=== PATIENT | female | born 1945 | race African-American/Black ===

== ENCOUNTER 2018-03-17 08:17 | Inpatient (IN) | payer MEDICARE, MEDICAID ==
[2018-03-17] VITALS (29 sets, daily range): BP systolic 88–143; BP diastolic 54–84
[~2018-03-17] VITALS: Ht 162.6 cm; Wt 66.7 kg
[~2018-03-17 08:17] MED LIST: ASPI-1158 PO; ATOR40TA70 PO; BENZ0.5T3 PO; CALC-25 PO; CARB100T4 PO; CLOM50CA2 PO; DOCU-272 PO; LEVO500T2 PO; QUET400T PO; RISP2TAB22 PO
[2018-03-17] MEDS ORDERED: KETAMINE HCL 50 MG/ML 10ML IV ONE (08:30)
[2018-03-17] MEDS ORDERED: EPINEPHRINE 1:1000 1 MG/ML AMP INJ ONE ×2 (08:30→08:45)
[2018-03-17] MEDS ORDERED: METHYLPREDNISOLONE SOD SUCC 125 MG/2 ML VIAL IV ONE (08:30)
[2018-03-17] MEDS ORDERED: FAMOTIDINE 20MG/2ML VIAL IV ONE (08:30)
[2018-03-17] MEDS ORDERED: SODIUM CHLORIDE 0.9% 1,000 ML IV ONE ×3 (08:39→09:25)
[2018-03-17] MEDS ORDERED: HYDRALAZINE 20MG/ML VIAL ONE (08:41)
[2018-03-17] MEDS ORDERED: PROPOFOL 10MG/ML 100ML 100 ML IV ONE (08:45)
[2018-03-17] MEDS ORDERED: MIDAZOLAM HCL 50 MG in DEXTROSE 5% WATER 40 ML IV ONE (08:45)
[2018-03-17] MEDS ORDERED: HYDRALAZINE 20MG/ML VIAL IV ONE (08:45)
[2018-03-17] MEDS ORDERED: SUCCINYLCHOLINE CHLORIDE 200MG/10ML VIAL IV ONE ×2 (08:45→10:34)
[2018-03-17 09:05] LABS: BASOPHILS % 0.4 % (0.0-2.0); EOSINOPHILS % 0.2 % (0.0-5.0); HEMATOCRIT. 36.4 % (36.0-48.0); HEMOGLOBIN. 12.1 g/dL (12.0-16.0); LYMPHOCYTES % 9.2 % (20.0-50.0); MEAN CORPUSCULAR HEMOGLOBIN 31.4 pg (28.0-32.0); MEAN CORPUSCULAR VOLUME 94.2 fL (81.0-99.0); MEAN PLATELET VOLUME 8.6 fl (7.4-10.4); NEUTROPHILS % 82.2 % (40.0-76.0); PLATELET 390 x1000/uL (130-400); RED BLOOD CELL COUNT 3.86 mill/uL (4.2-5.4); RED CELL DISTRIBUTION WIDTH 13.9 % (11.6-14.6)
[2018-03-17 09:11] LABS: CHLORIDE 98 mEq/L (98-107)
[2018-03-17 09:13] LABS: PROTHROMBIN TIME 10.7 sec (9.4-11.6)
[2018-03-17 09:30] LABS: BG BASE EXCESS -4.4 mmol/L (-2.0-2.0); BG CARBOXYHEMOGLOBIN 0.3 % (0.5-1.5); BG DEOXYHEMOGLOBIN 0.4 % (0.0-5.0); BG FRACTION INSPIRED OXYGEN 100; BG HCO3 ACT 21.1 mmol/L (22.0-26.0); BG METHEMOGLOBIN 0.3 % (0.0-1.5); BG OXYGEN SATURATION 99.6 % (92.0-98.5); BG PCO2 40.3 mmHg (35.0-45.0); BG PH 7.336 (7.350-7.450); BG SAMPLE SITE RIGHT BRACHIAL; BG TIDAL VOLUME(mL) 450 mL; BG TOTAL HEMOGLOBIN 12.4 g/dL (12.0-18.0); BG VENT MODE VENT - A/C; BG VENT RATE 14 set
[2018-03-17 09:30] LABS: CLARITY URINE TURBID (CLEAR); COLOR URINE DARK YELLOW (YELLOW); KETONES URINE 1+ (NEGATIVE); LEUKOCYTE ESTERASE URINE 3+ (NEGATIVE); NITRITE URINE POSITIVE (NEGATIVE); OCCULT BLOOD URINE 1+ (NEGATIVE); PH URINE 5.5 (4.5-8.0); PROTEIN URINE 1+ (NEGATIVE); SPECIFIC GRAVITY URINE 1.019 (1.005-1.030)
[2018-03-17] MEDS ORDERED: INSULIN REGULAR (HUMULIN R) 300UNITS/3ML IV ONE (09:30)
[2018-03-17] MEDS ORDERED: DEXTROSE 50% WATER 50ML SYRINGE IV ONE (09:30)
[2018-03-17] MEDS ORDERED: SODIUM BICARBONATE 8.4% 1 MEQ/ML 50ML SYR IV STA (09:32)
[2018-03-17] MEDS ORDERED: LEVOFLOXACIN 500MG PREMIX 100 ML IV ONE (09:45)
[2018-03-17] MEDS ORDERED: ETOMIDATE 2MG/ML 10ML VIAL IV ONE (10:34)
[2018-03-17 11:12] LABS: CHLORIDE 106 mEq/L (98-107)
[2018-03-17] MEDS ORDERED: NOREPINEPHRINE 4 MG in DEXT 5% WATER 246 ML IV PRN (13:15)
[2018-03-17] MEDS ORDERED: IPRATROPIUM/ALBUTEROL 0.5-3(2.5)MG/3ML NEB HHN PRN (13:15)
[2018-03-17] MEDS ORDERED: LEVOFLOXACIN 500MG PREMIX 100 ML IV SCH (13:15)
[2018-03-17] MEDS: ENOXAPARIN 40MG/0.4ML SYR SUBCUT SCH (13:44)
[2018-03-17] MEDS: DIPHENHYDRAMINE 50MG/ML VIAL IV SCH ×2 (13:44→18:49)
[2018-03-17] MEDS: DEXT 5%/0.45% NACL 1000ML 1,000 ML IV SCH (13:51)
[2018-03-17] MEDS: METHYLPREDNISOLONE SOD SUCC 40 MG/ML VIAL IV SCH ×2 (14:45→21:16)
[2018-03-17] MEDS: IPRATROPIUM/ALBUTEROL 0.5-3(2.5)MG/3ML NEB HHN SCH ×2 (15:37→20:28)
[2018-03-17] MEDS: PROPOFOL 10MG/ML 100ML 100 ML IV PRN (20:35)
[2018-03-17] MEDS ORDERED: FAMOTIDINE 20MG/2ML VIAL IV SCH (21:00)
[2018-03-18] VITALS (50 sets, daily range): BP systolic 92–156; BP diastolic 41–97
[2018-03-18] MEDS: IPRATROPIUM/ALBUTEROL 0.5-3(2.5)MG/3ML NEB HHN SCH ×6 (00:08→20:24)
[2018-03-18] MEDS: DIPHENHYDRAMINE 50MG/ML VIAL IV SCH ×5 (00:49→23:17)
[2018-03-18] MEDS: DEXT 5%/0.45% NACL 1000ML 1,000 ML IV SCH ×2 (00:52→20:06)
[2018-03-18] MEDS: METHYLPREDNISOLONE SOD SUCC 40 MG/ML VIAL IV SCH ×2 (06:04→17:29)
[2018-03-18] MEDS: PROPOFOL 10MG/ML 100ML 100 ML IV PRN (06:05)
[2018-03-18 06:08] LABS: HEMATOCRIT. 31.4 % (36.0-48.0); HEMOGLOBIN. 10.6 g/dL (12.0-16.0); MEAN CORPUSCULAR HEMOGLOBIN 31.3 pg (28.0-32.0); MEAN PLATELET VOLUME 8.5 fl (7.4-10.4); PLATELET 373 x1000/uL (130-400); RED BLOOD CELL COUNT 3.38 mill/uL (4.2-5.4)
[2018-03-18 06:21] LABS: CHLORIDE 104 mEq/L (98-107)
[2018-03-18] MEDS ORDERED: POTASSIUM CHLORIDE 20MEQ/PACKET PO SCH (07:45)
[2018-03-18 08:50] LABS: BG BASE EXCESS -0.1 mmol/L (-2.0-2.0); BG CARBOXYHEMOGLOBIN 0.3 % (0.5-1.5); BG DEOXYHEMOGLOBIN 2.5 % (0.0-5.0); BG FRACTION INSPIRED OXYGEN 40; BG HCO3 ACT 23.2 mmol/L (22.0-26.0); BG METHEMOGLOBIN 0.3 % (0.0-1.5); BG OXYGEN SATURATION 97.5 % (92.0-98.5); BG OXYHEMOGLOBIN 96.9 % (94.0-97.0); BG PH 7.464 (7.350-7.450); BG PO2 95.9 mmHg (75.0-100.0); BG SAMPLE SITE RIGHT RADIAL; BG TIDAL VOLUME(mL) 450 mL; BG TOTAL HEMOGLOBIN 11.6 g/dL (12.0-18.0); BG VENT MODE VENT - A/C; BG VENT RATE 14 set
[2018-03-18] MEDS: ENOXAPARIN 40MG/0.4ML SYR SUBCUT SCH (09:31)
[2018-03-18] MEDS: FAMOTIDINE 20MG/2ML VIAL IV SCH (09:32)
[2018-03-18 11:20] LABS: PLATELET ESTIMATE NORMAL
[2018-03-18] MEDS: LEVOFLOXACIN 250MG PREMIX 50 ML IV SCH (11:41)
[2018-03-18] MEDS ORDERED: PROPOFOL 10MG/ML 100ML 100 ML IV SCH (13:00)
[2018-03-19] VITALS (44 sets, daily range): BP systolic 93–158; BP diastolic 47–98
[2018-03-19] MEDS: IPRATROPIUM/ALBUTEROL 0.5-3(2.5)MG/3ML NEB HHN SCH ×6 (00:24→20:00)
[2018-03-19] MEDS: DIPHENHYDRAMINE 50MG/ML VIAL IV SCH ×4 (06:24→23:36)
[2018-03-19 06:30] LABS: HEMATOCRIT. 28.9 % (36.0-48.0); HEMOGLOBIN. 9.6 g/dL (12.0-16.0); MEAN CORPUSCULAR HEMOGLOBIN 31.4 pg (28.0-32.0); MEAN CORPUSCULAR VOLUME 94.5 fL (81.0-99.0); MEAN PLATELET VOLUME 8.6 fl (7.4-10.4); PLATELET 350 x1000/uL (130-400); RED BLOOD CELL COUNT 3.06 mill/uL (4.2-5.4); RED CELL DISTRIBUTION WIDTH 14.5 % (11.6-14.6)
[2018-03-19 06:43] LABS: CHLORIDE 105 mEq/L (98-107)
[2018-03-19 06:51] LABS: PHOSPHORUS 2.5 mg/dL (2.5-4.9)
[2018-03-19] MEDS ORDERED: POTASSIUM CHLORIDE 20MEQ/PACKET PO NR (08:00)
[2018-03-19] MEDS: METHYLPREDNISOLONE SOD SUCC 40 MG/ML VIAL IV SCH ×2 (08:37→17:50)
[2018-03-19] MEDS: ENOXAPARIN 40MG/0.4ML SYR SUBCUT SCH (08:38)
[2018-03-19] MEDS: FAMOTIDINE 20MG/2ML VIAL IV SCH (08:38)
[2018-03-19] MEDS ORDERED: PROPOFOL 10MG/ML 100ML 100 ML IV SCH (09:16)
[2018-03-19] MEDS: LEVOFLOXACIN 250MG PREMIX 50 ML IV SCH (11:39)
[2018-03-19 11:40] LABS: PLATELET ESTIMATE NORMAL
[2018-03-19] MEDS ORDERED: GENTAMICIN 100MG PREMIX 100 ML IV NR (17:00)
[2018-03-19] MEDS: GENTAMICIN 100MG PREMIX 50 ML IV SCH (17:50)
[2018-03-20] VITALS (36 sets, daily range): BP systolic 104–167; BP diastolic 47–115
[2018-03-20] MEDS: IPRATROPIUM/ALBUTEROL 0.5-3(2.5)MG/3ML NEB HHN SCH ×6 (00:17→19:58)
[2018-03-20 05:43] LABS: HEMATOCRIT. 30.6 % (36.0-48.0); HEMOGLOBIN. 10.2 g/dL (12.0-16.0); MEAN CORPUSCULAR HEMOGLOBIN 31.3 pg (28.0-32.0); MEAN CORPUSCULAR VOLUME 94.5 fL (81.0-99.0); MEAN PLATELET VOLUME 8.6 fl (7.4-10.4); PLATELET 354 x1000/uL (130-400); RED BLOOD CELL COUNT 3.24 mill/uL (4.2-5.4); RED CELL DISTRIBUTION WIDTH 14.3 % (11.6-14.6)
[2018-03-20] MEDS: DIPHENHYDRAMINE 50MG/ML VIAL IV SCH ×4 (05:45→23:16)
[2018-03-20 06:09] LABS: CHLORIDE 104 mEq/L (98-107)
[2018-03-20 06:15] LABS: PHOSPHORUS 1.8 mg/dL (2.5-4.9)
[2018-03-20 08:29] LABS: BG BASE EXCESS 4.8 mmol/L (-2.0-2.0); BG CARBOXYHEMOGLOBIN 0.3 % (0.5-1.5); BG DEOXYHEMOGLOBIN 2.7 % (0.0-5.0); BG FRACTION INSPIRED OXYGEN 30; BG HCO3 ACT 28.2 mmol/L (22.0-26.0); BG METHEMOGLOBIN 0.3 % (0.0-1.5); BG OXYGEN SATURATION 97.3 % (92.0-98.5); BG OXYHEMOGLOBIN 96.7 % (94.0-97.0); BG PCO2 37.2 mmHg (35.0-45.0); BG PH 7.497 (7.350-7.450); BG PO2 89.2 mmHg (75.0-100.0); BG PRESSURE SUPPORT 10; BG SAMPLE SITE RIGHT BRACHIAL; BG TIDAL VOLUME(mL) 450 mL; BG TOTAL HEMOGLOBIN 10.7 g/dL (12.0-18.0); BG VENT MODE VENT - SIMV; BG VENT RATE 8 set
[2018-03-20] MEDS: FAMOTIDINE 20MG/2ML VIAL IV SCH (09:59)
[2018-03-20] MEDS: METHYLPREDNISOLONE SOD SUCC 40 MG/ML VIAL IV SCH (10:00)
[2018-03-20] MEDS: ENOXAPARIN 40MG/0.4ML SYR SUBCUT SCH (10:00)
[2018-03-20 10:12] LABS: PLATELET ESTIMATE NORMAL
[2018-03-20] MEDS ORDERED: POTASSIUM PHOS,M-BASIC-D-BASIC 15 MMOL in SODIUM CHLORIDE 0.9% 245 ML IV NR (10:30)
[2018-03-20] MEDS ORDERED: LEVOFLOXACIN 750MG PREMIX 150 ML IV SCH (11:00)
[2018-03-20 11:01] LABS: BG BASE EXCESS 3.9 mmol/L (-2.0-2.0); BG CARBOXYHEMOGLOBIN 0.3 % (0.5-1.5); BG DEOXYHEMOGLOBIN 3.3 % (0.0-5.0); BG FRACTION INSPIRED OXYGEN 30; BG HCO3 ACT 27.8 mmol/L (22.0-26.0); BG METHEMOGLOBIN 0.2 % (0.0-1.5); BG OXYGEN SATURATION 96.7 % (92.0-98.5); BG OXYHEMOGLOBIN 96.2 % (94.0-97.0); BG PCO2 39.3 mmHg (35.0-45.0); BG PH 7.468 (7.350-7.450); BG PO2 84.2 mmHg (75.0-100.0); BG PRESSURE SUPPORT 8; BG SAMPLE SITE RIGHT BRACHIAL; BG TOTAL HEMOGLOBIN 11.4 g/dL (12.0-18.0); BG VENT MODE VENT - CPAP
[2018-03-20] MEDS ORDERED: GENTAMICIN 100MG PREMIX 100 ML IV SCH (17:00)
[2018-03-20] MEDS: ACETAMINOPHEN 325MG TABLET PO PRN (17:10)
[2018-03-20] MEDS: METHYLPREDNISOLONE SOD SUCC 125 MG/2 ML VIAL IV SCH ×2 (17:23→23:24)
[2018-03-20] MEDS: GENTAMICIN 100MG PREMIX 50 ML IV SCH (17:24)
[2018-03-20] MEDS: LACTULOSE 20G/30ML UDC PO PRN (18:46)
[2018-03-20] MEDS: LORAZEPAM 2MG/ML CPJ IV PRN (23:17)
[2018-03-21] VITALS (46 sets, daily range): BP systolic 99–158; BP diastolic 54–115
[2018-03-21] MEDS: IPRATROPIUM/ALBUTEROL 0.5-3(2.5)MG/3ML NEB HHN SCH ×6 (00:15→23:55)
[2018-03-21] MEDS: DIPHENHYDRAMINE 50MG/ML VIAL IV SCH ×4 (05:23→23:39)
[2018-03-21] MEDS: METHYLPREDNISOLONE SOD SUCC 125 MG/2 ML VIAL IV SCH ×4 (05:23→23:38)
[2018-03-21 05:52] LABS: HEMATOCRIT. 32.1 % (36.0-48.0); HEMOGLOBIN. 10.8 g/dL (12.0-16.0); MEAN CORPUSCULAR HEMOGLOBIN 31.9 pg (28.0-32.0); MEAN CORPUSCULAR VOLUME 95.1 fL (81.0-99.0); MEAN PLATELET VOLUME 9.9 fl (7.4-10.4); PLATELET 320 x1000/uL (130-400); RED BLOOD CELL COUNT 3.38 mill/uL (4.2-5.4); RED CELL DISTRIBUTION WIDTH 14.4 % (11.6-14.6)
[2018-03-21 06:04] LABS: CHLORIDE 100 mEq/L (98-107)
[2018-03-21 06:19] LABS: PHOSPHORUS 3.5 mg/dL (2.5-4.9)
[2018-03-21 06:59] LABS: PLATELET ESTIMATE NORMAL
[2018-03-21] MEDS: FAMOTIDINE 20MG/2ML VIAL IV SCH (10:28)
[2018-03-21] MEDS: ENOXAPARIN 40MG/0.4ML SYR SUBCUT SCH (10:29)
[2018-03-21] MEDS: GENTAMICIN 100MG PREMIX 50 ML IV SCH (17:27)
[2018-03-22] VITALS (52 sets, daily range): BP systolic 83–202; BP diastolic 19–125
[2018-03-22] MEDS: LORAZEPAM 2MG/ML CPJ IV PRN ×2 (02:05→22:41)
[2018-03-22] MEDS: IPRATROPIUM/ALBUTEROL 0.5-3(2.5)MG/3ML NEB HHN SCH ×5 (03:24→21:41)
[2018-03-22] MEDS: METHYLPREDNISOLONE SOD SUCC 125 MG/2 ML VIAL IV SCH ×4 (04:47→23:48)
[2018-03-22] MEDS: DIPHENHYDRAMINE 50MG/ML VIAL IV SCH ×4 (04:48→23:48)
[2018-03-22 06:40] LABS: HEMATOCRIT. 32.2 % (36.0-48.0); HEMOGLOBIN. 10.7 g/dL (12.0-16.0); MEAN CORPUSCULAR HEMOGLOBIN 31.2 pg (28.0-32.0); MEAN CORPUSCULAR VOLUME 94.4 fL (81.0-99.0); MEAN PLATELET VOLUME 9.1 fl (7.4-10.4); PLATELET 328 x1000/uL (130-400); RED BLOOD CELL COUNT 3.41 mill/uL (4.2-5.4); RED CELL DISTRIBUTION WIDTH 13.9 % (11.6-14.6)
[2018-03-22 07:39] LABS: CHLORIDE 98 mEq/L (98-107)
[2018-03-22] MEDS: FAMOTIDINE 20MG/2ML VIAL IV SCH (08:58)
[2018-03-22] MEDS: ENOXAPARIN 40MG/0.4ML SYR SUBCUT SCH (08:59)
[2018-03-22 09:01] LABS: BG BASE EXCESS 5.5 mmol/L (-2.0-2.0); BG CARBOXYHEMOGLOBIN 0.3 % (0.5-1.5); BG DEOXYHEMOGLOBIN 2.5 % (0.0-5.0); BG FRACTION INSPIRED OXYGEN 30; BG HCO3 ACT 29.5 mmol/L (22.0-26.0); BG METHEMOGLOBIN 0.1 % (0.0-1.5); BG OXYGEN SATURATION 97.5 % (92.0-98.5); BG OXYHEMOGLOBIN 97.1 % (94.0-97.0); BG PCO2 40.6 mmHg (35.0-45.0); BG PH 7.479 (7.350-7.450); BG PO2 99.2 mmHg (75.0-100.0); BG PRESSURE SUPPORT 10; BG SAMPLE SITE RIGHT BRACHIAL; BG TIDAL VOLUME(mL) 450 mL; BG TOTAL HEMOGLOBIN 11.1 g/dL (12.0-18.0); BG VENT MODE VENT - SIMV; BG VENT RATE 8 set
[2018-03-22 09:49] LABS: PLATELET ESTIMATE NORMAL
[2018-03-22 10:28] LABS: BG CARBOXYHEMOGLOBIN 0.6 % (0.5-1.5); BG DEOXYHEMOGLOBIN 4.1 % (0.0-5.0); BG FRACTION INSPIRED OXYGEN 30; BG HCO3 ACT 31.2 mmol/L (22.0-26.0); BG METHEMOGLOBIN 0.9 % (0.0-1.5); BG OXYGEN SATURATION 95.8 % (92.0-98.5); BG OXYHEMOGLOBIN 94.4 % (94.0-97.0); BG PCO2 42.5 mmHg (35.0-45.0); BG PH 7.483 (7.350-7.450); BG PRESSURE SUPPORT 8; BG SAMPLE SITE RIGHT BRACHIAL; BG TOTAL HEMOGLOBIN 12.2 g/dL (12.0-18.0); BG VENT MODE VENT - CPAP
[2018-03-22] MEDS ORDERED: RACEPINEPHRINE 2.25% 0.5ML NEB VIAL HHN PRN (11:15)
[2018-03-22 14:56] LABS: BG BASE EXCESS 6.5 mmol/L (-2.0-2.0); BG CARBOXYHEMOGLOBIN 0.4 % (0.5-1.5); BG DEOXYHEMOGLOBIN 3.1 % (0.0-5.0); BG FRACTION INSPIRED OXYGEN 40; BG HCO3 ACT 30.8 mmol/L (22.0-26.0); BG METHEMOGLOBIN 0.2 % (0.0-1.5); BG OXYGEN SATURATION 96.9 % (92.0-98.5); BG OXYHEMOGLOBIN 96.3 % (94.0-97.0); BG PCO2 43.1 mmHg (35.0-45.0); BG PH 7.472 (7.350-7.450); BG PO2 87.4 mmHg (75.0-100.0); BG SAMPLE SITE LEFT RADIAL; BG TOTAL HEMOGLOBIN 11.8 g/dL (12.0-18.0); BG VENT MODE MASK - AEROSOL
[2018-03-22] MEDS: GENTAMICIN 100MG PREMIX 50 ML IV SCH (17:15)
[2018-03-22] MEDS: MONTELUKAST SODIUM 10MG TABLET PO SCH (17:24)
[2018-03-23] VITALS (62 sets, daily range): BP systolic 105–188; BP diastolic 49–99
[2018-03-23] MEDS: IPRATROPIUM/ALBUTEROL 0.5-3(2.5)MG/3ML NEB HHN SCH ×6 (01:21→20:38)
[2018-03-23] MEDS: GENTAMICIN 100MG PREMIX 50 ML IV SCH ×2 (01:24→13:01)
[2018-03-23] MEDS: METHYLPREDNISOLONE SOD SUCC 125 MG/2 ML VIAL IV SCH ×3 (05:34→17:42)
[2018-03-23] MEDS: DIPHENHYDRAMINE 50MG/ML VIAL IV SCH ×3 (05:34→17:42)
[2018-03-23 06:33] LABS: HEMATOCRIT. 31.5 % (36.0-48.0); HEMOGLOBIN. 10.5 g/dL (12.0-16.0); MEAN CORPUSCULAR HEMOGLOBIN 31.5 pg (28.0-32.0); MEAN CORPUSCULAR VOLUME 94.1 fL (81.0-99.0); MEAN PLATELET VOLUME 8.9 fl (7.4-10.4); PLATELET 300 x1000/uL (130-400); RED BLOOD CELL COUNT 3.35 mill/uL (4.2-5.4); RED CELL DISTRIBUTION WIDTH 14.1 % (11.6-14.6)
[2018-03-23 06:46] LABS: CHLORIDE 97 mEq/L (98-107)
[2018-03-23 06:50] LABS: PHOSPHORUS 2.6 mg/dL (2.5-4.9)
[2018-03-23] MEDS: FAMOTIDINE 20MG/2ML VIAL IV SCH (08:29)
[2018-03-23] MEDS: ENOXAPARIN 40MG/0.4ML SYR SUBCUT SCH (08:30)
[2018-03-23 08:40] LABS: PLATELET ESTIMATE NORMAL
[2018-03-23 08:59] LABS: BG BASE EXCESS 8.4 mmol/L (-2.0-2.0); BG CARBOXYHEMOGLOBIN 0.4 % (0.5-1.5); BG FRACTION INSPIRED OXYGEN 30; BG HCO3 ACT 32.8 mmol/L (22.0-26.0); BG METHEMOGLOBIN 0.4 % (0.0-1.5); BG OXYHEMOGLOBIN 96.2 % (94.0-97.0); BG PCO2 44.4 mmHg (35.0-45.0); BG PH 7.486 (7.350-7.450); BG SAMPLE SITE RIGHT RADIAL; BG TOTAL HEMOGLOBIN 11.2 g/dL (12.0-18.0); BG VENT MODE NASAL CANNULA
[2018-03-23] MEDS: LORAZEPAM 2MG/ML CPJ IV PRN (09:55)
[2018-03-23] MEDS ORDERED: DEXTROSE 50% WATER 50ML SYRINGE IV PRN ×2 (13:45→17:45)
[2018-03-23] MEDS ORDERED: ENALAPRIL 2.5MG/2ML VIAL 2ML IV PRN (15:45)
[2018-03-23] MEDS: HYDRALAZINE 20MG/ML VIAL IV PRN ×2 (16:29→22:23)
[2018-03-23] MEDS: MONTELUKAST SODIUM 10MG TABLET PO SCH (16:29)
[2018-03-23] MEDS: BLOOD SUGAR DIAGNOSTIC STRIP TEST SCH ×4 (17:30→20:42)
[2018-03-23] MEDS: LACTULOSE 20G/30ML UDC PO PRN (17:41)
[2018-03-23] MEDS: INSULIN LISPRO 100 UNITS/ML SUBCUT SCH ×2 (17:42→20:42)
[2018-03-24] VITALS (12 sets, daily range): BP systolic 140–170; BP diastolic 58–83
[2018-03-24] MEDS: IPRATROPIUM/ALBUTEROL 0.5-3(2.5)MG/3ML NEB HHN SCH ×6 (00:31→21:25)
[2018-03-24] MEDS: DIPHENHYDRAMINE 50MG/ML VIAL IV SCH ×5 (00:58→22:56)
[2018-03-24] MEDS: METHYLPREDNISOLONE SOD SUCC 125 MG/2 ML VIAL IV SCH ×4 (00:58→17:05)
[2018-03-24] MEDS: GENTAMICIN 100MG PREMIX 50 ML IV SCH ×2 (01:00→12:12)
[2018-03-24] MEDS: BLOOD SUGAR DIAGNOSTIC STRIP TEST SCH ×6 (06:04→21:05)
[2018-03-24] MEDS: HYDRALAZINE 20MG/ML VIAL IV PRN (06:15)
[2018-03-24 06:28] LABS: HEMATOCRIT. 33.8 % (36.0-48.0); HEMOGLOBIN. 11.1 g/dL (12.0-16.0); MEAN CORPUSCULAR HEMOGLOBIN 31.3 pg (28.0-32.0); MEAN CORPUSCULAR VOLUME 94.8 fL (81.0-99.0); PLATELET 330 x1000/uL (130-400); RED BLOOD CELL COUNT 3.57 mill/uL (4.2-5.4); RED CELL DISTRIBUTION WIDTH 13.7 % (11.6-14.6)
[2018-03-24 07:31] LABS: CHLORIDE 101 mEq/L (98-107)
[2018-03-24 07:38] LABS: GENTAMICIN RANDOM 2.4 ug/mL
[2018-03-24] MEDS: INSULIN LISPRO 100 UNITS/ML SUBCUT SCH ×4 (08:05→21:00)
[2018-03-24] MEDS: ENOXAPARIN 40MG/0.4ML SYR SUBCUT SCH (08:49)
[2018-03-24] MEDS: FAMOTIDINE 20MG/2ML VIAL IV SCH (08:50)
[2018-03-24 12:56] LABS: PLATELET ESTIMATE NORMAL
[2018-03-24] MEDS: HYDRALAZINE HCL 25MG TABLET NG SCH ×2 (13:28→21:13)
[2018-03-24] MEDS: MONTELUKAST SODIUM 10MG TABLET PO SCH (17:06)
[2018-03-25] VITALS (12 sets, daily range): BP systolic 145–164; BP diastolic 63–90
[2018-03-25] MEDS: METHYLPREDNISOLONE SOD SUCC 125 MG/2 ML VIAL IV SCH ×2 (00:27→05:11)
[2018-03-25] MEDS: GENTAMICIN 100MG PREMIX 50 ML IV SCH ×2 (00:28→12:57)
[2018-03-25] MEDS: IPRATROPIUM/ALBUTEROL 0.5-3(2.5)MG/3ML NEB HHN SCH ×6 (00:51→20:28)
[2018-03-25] MEDS: HYDRALAZINE HCL 25MG TABLET NG SCH ×3 (05:12→21:11)
[2018-03-25] MEDS: LACTULOSE 20G/30ML UDC PO PRN (05:13)
[2018-03-25] MEDS: DIPHENHYDRAMINE 50MG/ML VIAL IV SCH ×4 (05:13→23:04)
[2018-03-25] MEDS: BLOOD SUGAR DIAGNOSTIC STRIP TEST SCH ×4 (06:24→21:10)
[2018-03-25] MEDS: INSULIN LISPRO 100 UNITS/ML SUBCUT SCH ×4 (06:27→21:00)
[2018-03-25 06:55] LABS: HEMATOCRIT. 34.5 % (36.0-48.0); MEAN CORPUSCULAR HEMOGLOBIN 30.5 pg (28.0-32.0); MEAN CORPUSCULAR VOLUME 95.7 fL (81.0-99.0); MEAN PLATELET VOLUME 9.1 fl (7.4-10.4); PLATELET 311 x1000/uL (130-400); RED CELL DISTRIBUTION WIDTH 14.1 % (11.6-14.6)
[2018-03-25 07:25] LABS: CHLORIDE 104 mEq/L (98-107)
[2018-03-25] MEDS: ENOXAPARIN 40MG/0.4ML SYR SUBCUT SCH (08:15)
[2018-03-25] MEDS: FAMOTIDINE 20MG/2ML VIAL IV SCH (08:15)
[2018-03-25 09:32] LABS: PLATELET ESTIMATE NORMAL
[2018-03-25] MEDS: HYDRALAZINE 20MG/ML VIAL IV PRN (15:54)
[2018-03-25] MEDS: METHYLPREDNISOLONE SOD SUCC 40 MG/ML VIAL IV SCH (17:02)
[2018-03-25] MEDS: MONTELUKAST SODIUM 10MG TABLET PO SCH (17:03)
[2018-03-26] VITALS (14 sets, daily range): BP systolic 121–164; BP diastolic 60–83
[2018-03-26] MEDS: IPRATROPIUM/ALBUTEROL 0.5-3(2.5)MG/3ML NEB HHN SCH ×6 (00:56→20:55)
[2018-03-26] MEDS: GENTAMICIN 100MG PREMIX 50 ML IV SCH ×2 (01:35→13:05)
[2018-03-26] MEDS: METHYLPREDNISOLONE SOD SUCC 40 MG/ML VIAL IV SCH ×2 (01:35→09:53)
[2018-03-26] MEDS: LACTULOSE 20G/30ML UDC PO PRN (05:53)
[2018-03-26] MEDS: DIPHENHYDRAMINE 50MG/ML VIAL IV SCH ×4 (05:53→23:48)
[2018-03-26] MEDS: HYDRALAZINE HCL 25MG TABLET NG SCH ×3 (05:54→22:05)
[2018-03-26] MEDS: BLOOD SUGAR DIAGNOSTIC STRIP TEST SCH ×4 (06:28→21:00)
[2018-03-26 06:38] LABS: HEMATOCRIT. 32.5 % (36.0-48.0); HEMOGLOBIN. 10.6 g/dL (12.0-16.0); MEAN CORPUSCULAR HEMOGLOBIN 31.3 pg (28.0-32.0); MEAN CORPUSCULAR VOLUME 95.9 fL (81.0-99.0); MEAN PLATELET VOLUME 9.3 fl (7.4-10.4); PLATELET 262 x1000/uL (130-400); RED BLOOD CELL COUNT 3.39 mill/uL (4.2-5.4); RED CELL DISTRIBUTION WIDTH 14.2 % (11.6-14.6)
[2018-03-26 06:55] LABS: CHLORIDE 105 mEq/L (98-107)
[2018-03-26] MEDS: FAMOTIDINE 20MG/2ML VIAL IV SCH (08:00)
[2018-03-26] MEDS: ENOXAPARIN 40MG/0.4ML SYR SUBCUT SCH (08:01)
[2018-03-26] MEDS: INSULIN LISPRO 100 UNITS/ML SUBCUT SCH ×4 (08:02→21:00)
[2018-03-26] MEDS: ACETAMINOPHEN 325MG TABLET PO PRN (15:51)
[2018-03-26 17:17] LABS: PLATELET ESTIMATE NORMAL
[2018-03-26] MEDS: MONTELUKAST SODIUM 10MG TABLET PO SCH (18:06)
[2018-03-26] MEDS: PREDNISONE 20MG TABLET PO SCH (18:07)
[2018-03-27] VITALS (12 sets, daily range): BP systolic 110–144; BP diastolic 58–93
[2018-03-27] MEDS: IPRATROPIUM/ALBUTEROL 0.5-3(2.5)MG/3ML NEB HHN SCH ×6 (00:54→20:34)
[2018-03-27] MEDS: DIPHENHYDRAMINE 50MG/ML VIAL IV SCH ×4 (06:07→23:06)
[2018-03-27] MEDS: HYDRALAZINE HCL 25MG TABLET NG SCH ×3 (06:08→21:14)
[2018-03-27] MEDS: BLOOD SUGAR DIAGNOSTIC STRIP TEST SCH ×4 (06:23→21:14)
[2018-03-27] MEDS: INSULIN LISPRO 100 UNITS/ML SUBCUT SCH ×4 (06:24→21:00)
[2018-03-27] MEDS: FAMOTIDINE 20MG/2ML VIAL IV SCH (09:19)
[2018-03-27] MEDS: ENOXAPARIN 40MG/0.4ML SYR SUBCUT SCH (09:20)
[2018-03-27] MEDS: PREDNISONE 20MG TABLET PO SCH ×2 (09:20→17:06)
[2018-03-27] MEDS ORDERED: SORBITOL 70% SOLN 30ML PO NR (10:30)
[2018-03-27] MEDS: MONTELUKAST SODIUM 10MG TABLET PO SCH (17:06)
[2018-03-27] MEDS: ACETAMINOPHEN 325MG TABLET PO PRN ×2 (17:18→21:26)
[2018-03-28] VITALS (15 sets, daily range): BP systolic 90–142; BP diastolic 34–101
[2018-03-28] MEDS: IPRATROPIUM/ALBUTEROL 0.5-3(2.5)MG/3ML NEB HHN SCH ×6 (00:28→22:48)
[2018-03-28] MEDS: HYDRALAZINE HCL 25MG TABLET NG SCH ×3 (06:50→23:20)
[2018-03-28] MEDS: BLOOD SUGAR DIAGNOSTIC STRIP TEST SCH ×4 (06:51→21:25)
[2018-03-28] MEDS: DIPHENHYDRAMINE 50MG/ML VIAL IV SCH ×4 (06:51→23:21)
[2018-03-28] MEDS: INSULIN LISPRO 100 UNITS/ML SUBCUT SCH ×4 (06:54→21:00)
[2018-03-28 07:09] LABS: HEMATOCRIT. 33.8 % (36.0-48.0); HEMOGLOBIN. 11.1 g/dL (12.0-16.0); MEAN CORPUSCULAR HEMOGLOBIN 31.4 pg (28.0-32.0); MEAN CORPUSCULAR VOLUME 96.1 fL (81.0-99.0); MEAN PLATELET VOLUME 9.3 fl (7.4-10.4); PLATELET 220 x1000/uL (130-400); RED BLOOD CELL COUNT 3.52 mill/uL (4.2-5.4); RED CELL DISTRIBUTION WIDTH 14.4 % (11.6-14.6)
[2018-03-28 07:11] LABS: CHLORIDE 103 mEq/L (98-107)
[2018-03-28] MEDS: ACETAMINOPHEN 325MG TABLET PO PRN ×2 (09:01→21:37)
[2018-03-28] MEDS: ENOXAPARIN 40MG/0.4ML SYR SUBCUT SCH (09:01)
[2018-03-28] MEDS: FAMOTIDINE 20MG/2ML VIAL IV SCH (09:01)
[2018-03-28] MEDS ORDERED: POTASSIUM CHLORIDE 20MEQ/PACKET PO SCH (11:00)
[2018-03-28] MEDS ORDERED: MORPHINE SULFATE 4 MG/ML CPJ (NOT FOR IM USE) IV PRN (11:15)
[2018-03-28] MEDS: PREDNISONE 20MG TABLET PO SCH (11:33)
[2018-03-28] MEDS: LORAZEPAM 2MG/ML CPJ IV PRN (11:46)
[2018-03-28 17:10] LABS: PLATELET ESTIMATE NORMAL
[2018-03-28] MEDS: MONTELUKAST SODIUM 10MG TABLET PO SCH (17:21)
[2018-03-28] MEDS ORDERED: SORBITOL 70% SOLN 30ML PO NR (18:00)
[2018-03-29] VITALS (19 sets, daily range): BP systolic 92–145; BP diastolic 36–85
[2018-03-29] MEDS: IPRATROPIUM/ALBUTEROL 0.5-3(2.5)MG/3ML NEB HHN SCH ×5 (01:19→20:56)
[2018-03-29] MEDS ORDERED: PIPERACILLIN/TAZ 3.375G PREMIX 50 ML IV SCH (05:00)
[2018-03-29] MEDS: HYDRALAZINE HCL 25MG TABLET NG SCH ×3 (06:00→22:05)
[2018-03-29] MEDS: LEVOFLOXACIN 500MG PREMIX 100 ML IV SCH (06:22)
[2018-03-29] MEDS: BLOOD SUGAR DIAGNOSTIC STRIP TEST SCH ×4 (06:23→22:06)
[2018-03-29] MEDS: DIPHENHYDRAMINE 50MG/ML VIAL IV SCH ×3 (06:23→17:14)
[2018-03-29 06:34] LABS: HEMATOCRIT. 33.2 % (36.0-48.0); HEMOGLOBIN. 10.9 g/dL (12.0-16.0); MEAN CORPUSCULAR HEMOGLOBIN 31.8 pg (28.0-32.0); MEAN CORPUSCULAR VOLUME 96.3 fL (81.0-99.0); MEAN PLATELET VOLUME 8.9 fl (7.4-10.4); PLATELET 213 x1000/uL (130-400); RED BLOOD CELL COUNT 3.44 mill/uL (4.2-5.4); RED CELL DISTRIBUTION WIDTH 14.3 % (11.6-14.6)
[2018-03-29 06:55] LABS: CHLORIDE 106 mEq/L (98-107)
[2018-03-29] MEDS: INSULIN LISPRO 100 UNITS/ML SUBCUT SCH ×4 (07:20→22:06)
[2018-03-29] MEDS: FAMOTIDINE 20MG/2ML VIAL IV SCH (08:25)
[2018-03-29] MEDS: PREDNISONE 20MG TABLET PO SCH (08:25)
[2018-03-29] MEDS: ACETAMINOPHEN 325MG TABLET PO PRN ×2 (08:25→16:45)
[2018-03-29] MEDS: ENOXAPARIN 40MG/0.4ML SYR SUBCUT SCH (08:26)
[2018-03-29 10:08] LABS: C1 ESTERASE INHIBITOR 31 mg/dL (21-39)
[2018-03-29] MEDS: MONTELUKAST SODIUM 10MG TABLET PO SCH (16:45)
[2018-03-30] VITALS (15 sets, daily range): BP systolic 109–150; BP diastolic 49–100
[2018-03-30] MEDS: IPRATROPIUM/ALBUTEROL 0.5-3(2.5)MG/3ML NEB HHN SCH ×5 (00:49→16:43)
[2018-03-30] MEDS: DIPHENHYDRAMINE 50MG/ML VIAL IV SCH ×4 (01:23→17:01)
[2018-03-30] MEDS: ACETAMINOPHEN 325MG TABLET PO PRN (01:36)
[2018-03-30 04:51] LABS: PLATELET ESTIMATE NORMAL
[2018-03-30] MEDS: HYDRALAZINE HCL 25MG TABLET NG SCH ×3 (07:05→21:45)
[2018-03-30] MEDS: LEVOFLOXACIN 500MG PREMIX 100 ML IV SCH (07:05)
[2018-03-30] MEDS: BLOOD SUGAR DIAGNOSTIC STRIP TEST SCH ×4 (07:05→20:57)
[2018-03-30] MEDS: INSULIN LISPRO 100 UNITS/ML SUBCUT SCH ×4 (07:20→20:58)
[2018-03-30] MEDS: ENOXAPARIN 40MG/0.4ML SYR SUBCUT SCH (08:16)
[2018-03-30] MEDS: FAMOTIDINE 20MG/2ML VIAL IV SCH (08:16)
[2018-03-30] MEDS: PREDNISONE 20MG TABLET PO SCH (08:16)
[2018-03-30 13:10] LABS: C1 ESTERASE INHIBITOR FUNCTNL 102 (.)
[2018-03-30] MEDS ORDERED: TRANEXAMIC ACID 1,000 MG/10 ML IV ONE (13:30)
[2018-03-30] MEDS ORDERED: TRANEXAMIC ACID 1,000 MG in SODIUM CHLORIDE 0.9% 100 ML IV NR (14:00)
[2018-03-30] MEDS: LORAZEPAM 2MG/ML CPJ IV PRN (15:33)
[2018-03-30] MEDS: MONTELUKAST SODIUM 10MG TABLET PO SCH (16:36)
[2018-03-31] VITALS: BP 148/60
[2018-03-31] MEDS: DIPHENHYDRAMINE 50MG/ML VIAL IV SCH ×3 (00:08→13:39)
[2018-03-31] MEDS: IPRATROPIUM/ALBUTEROL 0.5-3(2.5)MG/3ML NEB HHN SCH ×5 (00:41→21:08)
[2018-03-31 04:00] VITALS: BP 132/56
[2018-03-31] MEDS: HYDRALAZINE HCL 25MG TABLET NG SCH ×3 (05:14→22:43)
[2018-03-31] MEDS: BLOOD SUGAR DIAGNOSTIC STRIP TEST SCH ×3 (06:41→21:27)
[2018-03-31] MEDS: INSULIN LISPRO 100 UNITS/ML SUBCUT SCH ×3 (06:42→21:00)
[2018-03-31 08:00] VITALS: BP 139/70
[2018-03-31] MEDS: ENOXAPARIN 40MG/0.4ML SYR SUBCUT SCH (10:46)
[2018-03-31] MEDS: PREDNISONE 20MG TABLET PO SCH (10:46)
[2018-03-31] MEDS: FAMOTIDINE 20MG/2ML VIAL IV SCH (10:46)
[2018-03-31 12:00] VITALS: BP 149/70
[2018-03-31] MEDS: LEVOFLOXACIN 500MG PREMIX 100 ML IV SCH (15:01)
[2018-03-31 16:00] VITALS: BP 150/82
[2018-03-31 20:00] VITALS: BP 148/72
[2018-04-01] VITALS: BP 157/69
[2018-04-01] MEDS: IPRATROPIUM/ALBUTEROL 0.5-3(2.5)MG/3ML NEB HHN SCH ×6 (00:59→21:32)
[2018-04-01] MEDS: DIPHENHYDRAMINE 50MG/ML VIAL IV SCH ×4 (01:15→17:30)
[2018-04-01] MEDS: LORAZEPAM 2MG/ML CPJ IV PRN (01:43)
[2018-04-01 04:00] VITALS: BP 96/42
[2018-04-01] MEDS: LEVOFLOXACIN 500MG PREMIX 100 ML IV SCH (05:30)
[2018-04-01] MEDS: HYDRALAZINE HCL 25MG TABLET NG SCH ×3 (05:31→21:30)
[2018-04-01] MEDS: BLOOD SUGAR DIAGNOSTIC STRIP TEST SCH ×4 (06:47→20:49)
[2018-04-01] MEDS: INSULIN LISPRO 100 UNITS/ML SUBCUT SCH ×4 (06:47→20:48)
[2018-04-01 08:00] VITALS: BP 121/61
[2018-04-01] MEDS: FAMOTIDINE 20MG/2ML VIAL IV SCH (08:45)
[2018-04-01] MEDS: PREDNISONE 20MG TABLET PO SCH (08:45)
[2018-04-01] MEDS: ENOXAPARIN 40MG/0.4ML SYR SUBCUT SCH (09:06)
[2018-04-01 12:00] VITALS: BP 141/55
[2018-04-01] MEDS ORDERED: METHYLPREDNISOLONE SOD SUCC 125 MG/2 ML VIAL IV SCH (13:15)
[2018-04-01] MEDS: ACETAMINOPHEN 325MG TABLET PO PRN (13:18)
[2018-04-01 14:31] LABS: BG BASE EXCESS 9.8 mmol/L (-2.0-2.0); BG CARBOXYHEMOGLOBIN 0.4 % (0.5-1.5); BG DEOXYHEMOGLOBIN 2.8 % (0.0-5.0); BG FRACTION INSPIRED OXYGEN 21; BG HCO3 ACT 33.3 mmol/L (22.0-26.0); BG METHEMOGLOBIN 0.3 % (0.0-1.5); BG OXYGEN SATURATION 97.2 % (92.0-98.5); BG OXYHEMOGLOBIN 96.5 % (94.0-97.0); BG PCO2 40.8 mmHg (35.0-45.0); BG PO2 83.2 mmHg (75.0-100.0); BG SAMPLE SITE RIGHT BRACHIAL; BG TOTAL HEMOGLOBIN 13.5 g/dL (12.0-18.0); BG VENT MODE NASAL CPAP
[2018-04-01 16:00] VITALS: BP 150/83
[2018-04-01] MEDS: MONTELUKAST SODIUM 10MG TABLET PO SCH (17:29)
[2018-04-01 20:00] VITALS: BP 154/74
[2018-04-02] VITALS (10 sets, daily range): BP systolic 102–134; BP diastolic 39–105
[2018-04-02] MEDS: DIPHENHYDRAMINE 50MG/ML VIAL IV SCH ×4 (01:49→17:10)
[2018-04-02] MEDS: IPRATROPIUM/ALBUTEROL 0.5-3(2.5)MG/3ML NEB HHN SCH ×6 (01:53→20:47)
[2018-04-02] MEDS: LEVOFLOXACIN 500MG PREMIX 100 ML IV SCH (06:00)
[2018-04-02] MEDS: HYDRALAZINE HCL 25MG TABLET NG SCH ×3 (06:38→23:07)
[2018-04-02] MEDS: BLOOD SUGAR DIAGNOSTIC STRIP TEST SCH ×4 (06:54→21:40)
[2018-04-02] MEDS: INSULIN LISPRO 100 UNITS/ML SUBCUT SCH ×4 (06:54→21:00)
[2018-04-02] MEDS: PREDNISONE 20MG TABLET PO SCH (08:00)
[2018-04-02] MEDS: ACETAMINOPHEN 325MG TABLET PO PRN ×3 (08:00→23:08)
[2018-04-02] MEDS: FAMOTIDINE 20MG/2ML VIAL IV SCH (08:00)
[2018-04-02] MEDS: ENOXAPARIN 40MG/0.4ML SYR SUBCUT SCH (08:01)
[2018-04-02] MEDS: MONTELUKAST SODIUM 10MG TABLET PO SCH (17:10)
[2018-04-03] MEDS: IPRATROPIUM/ALBUTEROL 0.5-3(2.5)MG/3ML NEB HHN SCH (00:36)
[2018-04-03] MEDS ORDERED: PREDNISONE 20MG TABLET PO SCH (09:00)
== END 2018-04-03 01:35 | disposition short-term general hospital (02) | DRG 720 ==
LOC: ER 08:20 → CVICU 08:43 → ENRESERV 09:23 → 3WST 03-23 23:50 → 8WST 03-30 18:00
PROVIDERS: ADMIT Hospitalist; ATTEND Hospitalist
PROC: 5A1955Z Respiratory Ventilation, Greater than 96 Consecutive Hours (ICD-10-PCS; principal; 2018-03-17)
PROC: 0BH18EZ Insertion of Endotracheal Airway into Trachea, Via Natural or Artificial Opening Endoscopic (ICD-10-PCS; 2018-03-17)
DX: A41.9 Sepsis, unspecified organism (principal); J96.00 Acute respiratory failure, unspecified whether with hypoxia or hypercapnia; J69.0 Pneumonitis due to inhalation of food and vomit; G93.40 Encephalopathy, unspecified; N39.0 Urinary tract infection, site not specified; R65.20 Severe sepsis without septic shock; E87.5 Hyperkalemia; T78.3XXA Angioneurotic edema, initial encounter; F09 Unspecified mental disorder due to known physiological condition; I11.0 Hypertensive heart disease with heart failure; G40.909 Epilepsy, unspecified, not intractable, without status epilepticus; E11.9 Type 2 diabetes mellitus without complications; I50.30 Unspecified diastolic (congestive) heart failure; M81.0 Age-related osteoporosis without current pathological fracture; R62.50 Unspecified lack of expected normal physiological development in childhood; G24.01 Drug induced subacute dyskinesia; K59.00 Constipation, unspecified; E78.5 Hyperlipidemia, unspecified; I71.2 Thoracic aortic aneurysm, without rupture; R47.01 Aphasia; Z88.1 Allergy status to other antibiotic agents; Z91.018 Allergy to other foods; Z79.01 Long term (current) use of anticoagulants; Z87.440 Personal history of urinary (tract) infections
CPT/HCPCS: 31500; 36415; 36600; 51702; 70490; 71045; 74018; 80048; 80053; 80156; 80170; 81003; 82375; 82805; 82962; 83605; 83690; 83735; 83880; 84100; 84132; 84443; 84478; 84484; 85025; 85610; 85730; 86160; 86161; 87040; 87070; 87086; 87186; 92610; 93005; 93970; 94002; 94003; 94640; 96365; 96372; 96375; 99291; A6261; C1893; J0330; J0360; J1200; J1580; J1650; J1815; J1956; J2060; J2250; J2704; J2920; J2930; J3490; J7030; J7050; J7060; J7512; J7620